=== PATIENT | male | born 1950 | race African-American/Black ===

== ENCOUNTER 2017-11-16 03:20 | Emergency (ER) | payer MEDICARE, OTHER ==
[2017-11-16] MEDS ORDERED: ONDANSETRON HCL INJ/PF 4 MG/2 ML SDV IV ONE (03:49)
[2017-11-16] MEDS ORDERED: MORPHINE SULFATE 10 MG/ML INJ IV ONE (03:49)
--- NOTE | 2017-11-16 03:56 | ER Document Report ---
ED General - General Chief Complaint: Pain All Over Stated Complaint: PAIN ALL OVER Time Seen by Provider: 11/16/17 03:36 Notes: Patient is a 67 year old male that comes to the ED for chief complaint of body pain. He states he is getting sharp pains all the way from his toes up to his shoulders, he mainly hurts in his shoulders, arms, legs. He states he has had these pains for the past 4 years. He is on pain management taking oxycodone 10/ 325 but he states he is out. He denies nausea vomiting, chest pain, difficulty breathing, dizziness, passing out, fever or chills. He states he has had a bypass surgery, and thrombocytopenia been treated for this in the past, otherwise he denies any medical history, he denies any other medical lesions other than the pain medication. He has been referred to pain management. He states he has had MRIs performed of his body including his back. He states he was never given a specific reason for his pains. He denies diabetes or known neuropathy. TRAVEL OUTSIDE OF THE [place] IN LAST 30 DAYS: No - Related Data Allergies/Adverse Reactions: No Known Allergies Allergy (Verified 01/05/13 23:46) Past Medical History - General Information source: Patient - Social History Smoking Status: Never Smoker Frequency of alcohol use: None Drug Abuse: None Lives with: Family Family History: Reviewed & Not Pertinent - Past Medical History Cardiac Medical History: Reports: Hx Heart Attack Past Surgical History: Reports: Hx Cardiac Catheterization - 20 YRS AGO, NEG., Hx Coronary Artery Bypass Graft - Immunizations Hx Diphtheria, Pertussis, Tetanus Vaccination: Yes Review of Systems - Review of Systems Constitutional: No symptoms reported EENT: No symptoms reported Cardiovascular: No symptoms reported Respiratory: No symptoms reported Gastrointestinal: No symptoms reported Genitourinary: No symptoms reported Male Genitourinary: No symptoms reported Musculoskeletal: See HPI Skin: No symptoms reported Hematologic/Lymphatic: No symptoms reported Neurological/Psychological: See HPI Physical Exam - Vital signs Vitals: Temp Pulse Resp BP Pulse Ox 98.8 F 87 18 156/76 H 98 11/16/17 03:28 11/16/17 03:28 11/16/17 03:28 11/16/17 03:28 11/16/17 03:28 - Notes Notes: GENERAL: Alert, interacts well. No acute distress. HEAD: Normocephalic, atraumatic. EYES: Pupils equal, round, and reactive to light. Extraocular movements intact. ENT: Oral mucosa moist, tongue midline. NECK: Full range of motion. Supple. Trachea midline. LUNGS: Clear to auscultation bilaterally, no wheezes, rales, or rhonchi. No respiratory distress. HEART: Regular rate and rhythm. No murmur ABDOMEN: Soft, non-tender. Non-distended. Bowel sounds present in all 4 quadrants. EXTREMITIES: Moves all 4 extremities spontaneously, he does move stiffly including the hands and with walking. No edema, normal radial and dorsalis pedis pulses bilaterally. No cyanosis. BACK: no cervical, thoracic, lumbar midline tenderness. No saddle anesthesia, normal distal neurovascular exam. NEUROLOGICAL: Alert and oriented x3. Normal speech. [cranial nerves II through XII grossly intact]. PSYCH: Normal affect, normal mood. SKIN: Warm, dry, normal turgor. No rashes or lesions noted. Course - Re-evaluation Re-evalutation: Patient has stiffness and reported pain but does not appear to be in distress, has no neurological deficits, is well-appearing. Unremarkable vital signs with borderline hypertension. CBC shows minimal leukopenia, no thrombocytopenia, minimal normocytic anemia. Chemistry generally unremarkable. On reevaluation patient continues to be well- appearing, he states he does feel improved after medication, is asking for another dose of something small before he goes home. Patient also given dexamethasone because of widespread joint pain. Discussed with patient, he is already had MRIs, he is unsure of autoimmune workup, he is not diagnosed with neuropathy. I do suspect he has neuropathy based on his exam and explanation of his symptoms. Decision was made that patient will be provided with some pain medication pending pain management follow-up, he will discuss neuropathy treatment with them, patient is to inform his pain management of the pain medication in the morning before filling, this was discussed with and patient. Patient states he will be seen on November 18. Discussed follow-up and return precautions, patient states understanding and agreement. - Vital Signs Vital signs: Temp Pulse Resp BP Pulse Ox 98.8 F 87 21 H 160/84 H 100 11/16/17 03:28 11/16/17 03:28 11/16/17 05:33 11/16/17 05:33 11/16/17 05:33 - Laboratory Result Diagrams: 11/16/17 04:25 11/16/17 04:25 Laboratory results interpreted by me: 11/16/17 11/16/17 04:25 04:25 WBC 3.5 L RBC 4.08 L Hgb 12.0 L Hct 36.1 L RDW 15.7 H Glucose 114 H Discharge - Discharge Clinical Impression: Joint pain Qualifiers: Joint pain location: unspecified Qualified Code(s): M25.50 - Pain in unspecified joint Condition: Stable Disposition: HOME, SELF-CARE Instructions: Oral Narcotic Medication ([facility]) Additional Instructions: Your evaluation does not show any concerning findings today. I suspect you have neuropathy, you may need additional treatments and evaluation for the neuropathy. Follow-up with pain management in 2 days as planned for additional evaluation and management. You have been prescribed medication to help you until you go to pain management. Prescriptions: Morphine Sulfate [Morphine Ir 15 Mg Tablet] 15 mg PO Q4HP PRN #20 tablet PRN Reason: Referrals: NICOLE BOWERS FNP [Primary Care Provider] - Follow up as needed
[2017-11-16 04:40] LABS: ABSOLUTE EOSINOPHILS # (AUTO) 0.1 10^3/uL (0.0-0.6); ABSOLUTE LYMPHOCYTES (AUTO) 0.5 10^3/uL (0.5-4.7); ABSOLUTE MONOCYTES (AUTO) 0.2 10^3/uL (0.1-1.4); ABSOLUTE NEUT (AUTO) 2.6 10^3/uL (1.7-8.2); BASOPHILS % (AUTO) 0.2 % (0-2); HEMATOCRIT 36.1 % (37.9-51.0); LYMPHOCYTES % (AUTO) 14.4 % (13-45); MEAN CORPUSCULAR HEMOGLOBIN 29.5 pg (27.0-33.4); MEAN CORPUSCULAR HGB CONC 33.3 g/dL (32.0-36.0); MEAN CORPUSCULAR VOLUME 89 fl (80-97); MONOCYTES % (AUTO) 6.7 % (3-13); PLATELET COUNT 208 10^3/uL (150-450); RED BLOOD COUNT 4.08 10^6/uL (4.35-5.55); RED CELL DISTRIBUTION WIDTH 15.7 % (11.5-14.0); SEGMENTED NEUTROPHILS % (AUTO) 75.7 % (42-78); TOTAL CELLS COUNTED % (AUTO) 100 %; WHITE BLOOD COUNT 3.5 10^3/uL (4.0-10.5)
[2017-11-16 04:56] LABS: ALANINE AMINOTRANSFERASE 29 U/L (21-72); ALKALINE PHOSPHATASE 65 U/L (38-126); ANION GAP 13 (5-19); ASPARTATE AMINO TRANSFERASE 33 U/L (17-59); BILIRUBIN,DIRECT 0.4 mg/dL (0.0-0.4); BILIRUBIN,TOTAL 0.5 mg/dL (0.2-1.3); BLOOD UREA NITROGEN 15 mg/dL (7-20); CALCIUM 9.2 mg/dL (8.4-10.2); CARBON DIOXIDE 25 mmol/L (22-30); CHLORIDE 106 mmol/L (98-107); GLUCOSE 114 mg/dL (75-110); POTASSIUM 4.3 mmol/L (3.6-5.0)
[2017-11-16] MEDS ORDERED: HYDROMORPHONE HCL INJ/PF 2 MG/ML AMPULE IV ONE (05:17)
[2017-11-16] MEDS ORDERED: DEXAMETHASONE SOD PHOS INJ 10 MG/1 ML VIAL IV ONE (05:18)
[2017-11-16 05:54] VITALS: BP 160/84
== END 2017-11-16 05:55 | disposition home or self-care (01) ==
LOC: ER 03:20
DX: M25.519 Pain in unspecified shoulder (principal); M79.603 Pain in arm, unspecified; M79.606 Pain in leg, unspecified; D72.819 Decreased white blood cell count, unspecified; D64.9 Anemia, unspecified; Z95.1 Presence of aortocoronary bypass graft
CPT/HCPCS: 99283; 96374; 96375; 36415; 85025; 80053; J2270; J1170; J2405; J1100

== ENCOUNTER 2018-03-28 12:53 | Emergency (ER) | payer MEDICARE ==
[2018-03-28] MEDS ORDERED: ASPIRIN 81 MG TABLET, CHEWABLE PO ONE (14:27)
--- NOTE | 2018-03-28 14:41 | ER Document Report ---
ED General - General Chief Complaint: Chest Pain Stated Complaint: CHEST PAIN Time Seen by Provider: 03/28/18 13:48 Mode of Arrival: Ambulatory Information source: Patient, Relative, [facility], [facility]–1983 Records Notes: 67-year-old male with coronary artery disease, history of CABG in 2013 presents with complaint of left-sided chest pain, left upper abdominal pain that has been present since his surgery in 2013 with reported worsening over the last 3 weeks. He describes it as a sharp intermittent pain that resolves when he remains still. States that he believes this is gas-like pain. Patient denies associated headache, diaphoresis, nausea, vomiting, dysuria, black or bloody stools. He does report a history of thrombocytopenia. Patient states that he took himself off of all of the medications that he was discharged home on. TRAVEL OUTSIDE OF THE [place] IN LAST 30 DAYS: No - HPI Onset: Other Onset/Duration: Constant Quality of pain: Sharp Severity: Moderate Associated symptoms: Chest pain, Shortness of breath. denies: Nonproductive cough, Productive cough, Fever, Headache, Nausea, Vomiting Exacerbated by: Movement Relieved by: Remaining still Similar symptoms previously: Yes Recently seen / treated by doctor: No - Related Data Allergies/Adverse Reactions: lemon Allergy (Verified 03/28/18 14:31) Past Medical History - General Information source: Patient - Social History Smoking Status: Never Smoker Chew tobacco use (# tins/day): No Frequency of alcohol use: None Drug Abuse: None Lives with: Spouse/Significant other Family History: Reviewed & Not Pertinent Patient has suicidal ideation: No Patient has homicidal ideation: No - Past Medical History Cardiac Medical History: Reports: Hx Coronary Artery Disease, Hx Heart Attack, Hx Hypertension Renal/ Medical History: Denies: Hx Peritoneal Dialysis Past Surgical History: Reports: Hx Cardiac Catheterization - 20 YRS AGO, NEG., Hx Cardiac Surgery - CABG, x3 stent placement 2013, Hx Coronary Artery Bypass Graft - Immunizations Hx Diphtheria, Pertussis, Tetanus Vaccination: Yes Review of Systems - Review of Systems Notes: REVIEW OF SYSTEMS: CONSTITUTIONAL : Denies fever, chills, or sweats. Denies recent illness. Denies weight loss, recent hospitalizations. EENT: Denies visual changes, eye pain. Denies sore throat, oral lesions, difficulty swallowing. CARDIOVASCULAR: Denies palpitations. Denies lower extremity edema. RESPIRATORY: Denies cough. Denies shortness of breath, wheezing. GASTROINTESTINAL: Denies abdominal distention. Denies nausea, vomiting, or diarrhea. Denies blood in vomitus, stools, or per rectum. Denies black, tarry stools. Denies constipation. GENITOURINARY: Denies difficulty urinating, painful urination, frequency, blood in urine, testicular pain or penile discharge. MUSCULOSKELETAL: Denies back or neck pain or stiffness. Denies joint pain or swelling. SKIN: Denies rash, lesions or sores. HEMATOLOGIC : Denies easy bruising or bleeding. LYMPHATIC: Denies swollen glands. NEUROLOGICAL: Denies confusion or altered mental status. Denies loss of consciousness. Denies dizziness or lightheadedness. Denies headache. Denies weakness or paralysis. Denies problems difficulty with ambulation, slurred speech. Denies sensory loss, numbness, or tingling. Denies seizures. PSYCHIATRIC: Denies anxiety or stress. Denies depression, suicidal ideation, or Physical Exam - Vital signs Vitals: Temp Pulse Resp BP Pulse Ox 98.7 F 76 18 160/87 H 99 03/28/18 13:04 03/28/18 13:04 03/28/18 13:04 03/28/18 13:04 03/28/18 13:04 Interpretation: Hypertensive. No: Tachycardic, Febrile - Notes Notes: PHYSICAL EXAMINATION: GENERAL: Well-appearing, well-nourished and in no acute distress. HEAD: Atraumatic, normocephalic. EYES: Pupils equal round and reactive to light, extraocular movements intact, sclera anicteric, conjunctiva are normal. ENT: Nares patent, oropharynx clear without exudates. Moist mucous membranes. NECK: Normal range of motion, supple without lymphadenopathy LUNGS: Diminished breath sounds bilaterally in the lower lung pimentel. No wheezes rales or rhonchi. Surgical scar clean dry and intact. Anterior chest wall tenderness with palpation. HEART: Regular rate and rhythm without murmurs ABDOMEN: Soft, nontender, nondistended abdomen. No guarding, no rebound. No masses appreciated. Musculoskeletal: Normal range of motion, no pitting or edema. No cyanosis. NEUROLOGICAL: Cranial nerves grossly intact. Normal speech, normal gait. Normal sensory, motor exams PSYCH: Normal mood, normal affect. SKIN: Erythematous rash on knees bilaterally. Not vesicular, pustular appears petechial. Course - Re-evaluation Re-evalutation: 03/28/18 17:55 Laboratory 03/28/18 03/28/18 03/28/18 14:11 14:11 14:11 WBC 3.1 L RBC 4.42 Hgb 13.4 L Hct 39.7 MCV 90 MCH 30.3 MCHC 33.8 RDW 15.9 H Plt Count 176 Seg Neutrophils % 71.6 Lymphocytes % 16.5 Monocytes % 8.9 Eosinophils % 2.6 Basophils % 0.4 Absolute Neutrophils 2.2 Absolute Lymphocytes 0.5 Absolute Monocytes 0.3 Absolute Eosinophils 0.1 Absolute Basophils 0.0 PT INR Sodium 144.5 Potassium 3.8 Chloride 103 Carbon Dioxide 30 Anion Gap 12 BUN 15 Creatinine 0.83 Est GFR ( Amer) > 60 Est GFR (Non-Af Amer) > 60 Glucose 98 Calcium 9.4 Total Bilirubin 0.5 Direct Bilirubin 0.3 Neonat Total Bilirubin Not Reportable Neonat Direct Bilirubin Not Reportable Neonat Indirect Bili Not Reportable AST 35 ALT 15 L Alkaline Phosphatase 63 Creatine Kinase 51 L CK-MB (CK-2) < 0.22 Troponin I < 0.012 NT-Pro-B Natriuret Pep 190 Total Protein 8.0 Albumin 4.1 Lipase 132.1 03/28/18 03/28/18 03/28/18 14:11 15:22 16:40 WBC RBC Hgb Hct MCV MCH MCHC RDW Plt Count Seg Neutrophils % Lymphocytes % Monocytes % Eosinophils % Basophils % Absolute Neutrophils Absolute Lymphocytes Absolute Monocytes Absolute Eosinophils Absolute Basophils PT Cancelled 12.5 INR Cancelled 0.89 Sodium Potassium Chloride Carbon Dioxide Anion Gap BUN Creatinine Est GFR ( Amer) Est GFR (Non-Af Amer) Glucose Calcium Total Bilirubin Direct Bilirubin Neonat Total Bilirubin Neonat Direct Bilirubin Neonat Indirect Bili AST ALT Alkaline Phosphatase Creatine Kinase CK-MB (CK-2) Troponin I < 0.012 NT-Pro-B Natriuret Pep Total Protein Albumin Lipase Chest X-Ray 03/28/18 14:27 IMPRESSION: The heart slightly enlarged without failure. Acute Abdomen Series 03/28/18 15:47 IMPRESSION: NO RADIOGRAPHIC EVIDENCE FOR ACUTE ABDOMINAL DISEASE. Temp Pulse Resp BP Pulse Ox 98.7 F 76 25 H 167/76 H 98 03/28/18 13:04 03/28/18 13:04 03/28/18 17:27 03/28/18 17:27 03/28/18 17:27 59-year-old male with history these and CABG in 2013 presents with left-sided chest and left upper quadrant abdominal pain that has been present for approximately 4 years with worsening over the last 3 weeks. Upon arrival patient was placed on social services technician and an EKG was obtained which showed the patient to be in normal sinus rhythm. Patient does not appear toxic or dehydrated. He is in no acute distress. Previous medical records and nursing notes reviewed. CBC is without leukocytosis or anemia. There is no thrombocytopenia. Troponin is negative x2. Chest x-ray shows cardiomegaly without evidence of vascular congestion. CMP, lipase, BNP within normal limits. Patient received a GI cocktail and does report improvement of his pain. He does have an upcoming appointment with his primary care physician in 4 days and he was strongly encouraged to keep this. I feel that if this was cardiac in nature after 3 weeks of persistent pain and 4 years of intermittent pain we would see an elevation in his troponin or some other abnormality. Patient was provided a copy of his imaging and lab work that was performed today. 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 Patient was evaluated and treated as appropriate for the patient's presenting symptoms and complaint, with consideration of any critical or life threatening conditions that may be associated with their obtained history and exam as noted above. All results were discussed with patient and his . Patient provided the opportunity to ask questions, and express concerns. Patient was educated on treatments based on their presumed diagnosis as noted above. At this time we will discharge the patient with return precautions and follow-up recommendations. Verbal discharge instructions given a the bedside. Medication warnings reviewed. Patient is in agreement with this plan and has verbalized understanding of return precautions. After careful consideration I feel that that patient can be safely discharged from the emergency department, they were advised to followup with a primary care physician in 2-3 days. Dictation on this chart was performed using voice recognition software and may result in unintended grammatical, spelling, syntax or errors. 03/28/18 18:03 - Vital Signs Vital signs: Temp Pulse Resp BP Pulse Ox 98.7 F 76 25 H 167/76 H 98 03/28/18 13:04 03/28/18 13:04 12/09/18 17:27 03/28/18 17:27 03/28/18 17:27 - Laboratory Result Diagrams: 03/28/18 14:11 03/28/18 14:11 Laboratory results interpreted by me: 03/28/18 03/28/18 14:11 14:11 WBC 3.1 L Hgb 13.4 L RDW 15.9 H ALT 15 L Creatine Kinase 51 L - Diagnostic Test Radiology reviewed: Image reviewed, Reports reviewed - EKG Interpretation by Me EKG shows normal: Sinus rhythm Rate: Normal Rhythm: NSR Voltage: Consistant with LVH When compared to previous EKG there are: No significant change Discharge - Discharge Clinical Impression: Epigastric abdominal pain, Noncompliance with medication regimen, History of coronary artery bypass graft x 3, Left ventricular hypertrophy, Elevated blood pressure reading Chest pain Qualifiers: Chest pain type: unspecified Qualified Code(s): R07.9 - Chest pain, unspecified Condition: Good Disposition: HOME, SELF-CARE Instructions: Abdominal Pain ([facility]), Aspirin (Cardiac) ([facility]), Chest Pain of Unclear Cause ([facility]), Reflux Disease (GERD) ([facility]) Additional Instructions: You were seen today for chest pain. The exact cause of your pain is unclear. However, based on your cardiac enzyme testing, chest x-ray, and EKG it does not appear that it is from an immediately life-threatening cause at this time. Although your testing here is normal is critical that you follow-up with your primary care physician for continued evaluation of this chest pain and possible stress testing. I recommended you see your physician within the next 24-48 hours to be evaluated for consideration of a stress test. Please return to emergency department immediately if you have worsening of your chest pain, shortness of breath, vomiting, become unable to exert yourself due to pain or difficulty breathing, you pass out, or have any pain that radiates into your arms, jaw, or back. Please also return if you have any additional symptoms that are concerning to you. Prescriptions: Dicyclomine HCl [Bentyl 20 mg Tablet] 20 mg PO QID #10 tablet Sucralfate [Carafate 1 gm Tablet] 1 gm PO ACHS #20 tablet Forms: Elevated Blood Pressure Referrals: NICOLE BOWERS FNP [Primary Care Provider] - Follow up tomorrow
[2018-03-28 14:50] LABS: ABSOLUTE EOSINOPHILS # (AUTO) 0.1 10^3/uL (0.0-0.6); ABSOLUTE LYMPHOCYTES (AUTO) 0.5 10^3/uL (0.5-4.7); ABSOLUTE MONOCYTES (AUTO) 0.3 10^3/uL (0.1-1.4); ABSOLUTE NEUT (AUTO) 2.2 10^3/uL (1.7-8.2); BASOPHILS % (AUTO) 0.4 % (0-2); EOSINOPHILS % (AUTO) 2.6 % (0-6); HEMATOCRIT 39.7 % (37.9-51.0); HEMOGLOBIN 13.4 g/dL (13.5-17.0); LYMPHOCYTES % (AUTO) 16.5 % (13-45); MEAN CORPUSCULAR HEMOGLOBIN 30.3 pg (27.0-33.4); MEAN CORPUSCULAR HGB CONC 33.8 g/dL (32.0-36.0); MEAN CORPUSCULAR VOLUME 90 fl (80-97); MONOCYTES % (AUTO) 8.9 % (3-13); PLATELET COUNT 176 10^3/uL (150-450); RED BLOOD COUNT 4.42 10^6/uL (4.35-5.55); RED CELL DISTRIBUTION WIDTH 15.9 % (11.5-14.0); SEGMENTED NEUTROPHILS % (AUTO) 71.6 % (42-78); TOTAL CELLS COUNTED % (AUTO) 100 %; WHITE BLOOD COUNT 3.1 10^3/uL (4.0-10.5)
[2018-03-28 14:59] LABS: ALANINE AMINOTRANSFERASE 15 U/L (21-72); ALBUMIN 4.1 g/dL (3.5-5.0); ALKALINE PHOSPHATASE 63 U/L (38-126); ANION GAP 12 (5-19); ASPARTATE AMINO TRANSFERASE 35 U/L (17-59); BILIRUBIN,DIRECT 0.3 mg/dL (0.0-0.4); BILIRUBIN,TOTAL 0.5 mg/dL (0.2-1.3); BLOOD UREA NITROGEN 15 mg/dL (7-20); CALCIUM 9.4 mg/dL (8.4-10.2); CARBON DIOXIDE 30 mmol/L (22-30); CHLORIDE 103 mmol/L (98-107); CREATINE KINASE 51 U/L (55-170); GLUCOSE 98 mg/dL (75-110); LIPASE 132.1 U/L (23-300); POTASSIUM 3.8 mmol/L (3.6-5.0); SODIUM 144.5 mmol/L (137-145)
--- NOTE | 2018-03-28 15:06 | RADIOLOGY REPORT (SQ) ---
EXAM DESCRIPTION: CHEST SINGLE VIEW COMPLETED DATE/TIME: 03/28/2018 2:52 pm REASON FOR STUDY: Chest pain COMPARISON: 03/20/2013 EXAM PARAMETERS: NUMBER OF VIEWS: One view. TECHNIQUE: Single frontal radiographic view of the chest acquired. RADIATION DOSE: NA LIMITATIONS: None. FINDINGS: LUNGS AND PLEURA: No opacities, masses or pneumothorax. No pleural effusion. MEDIASTINUM AND HILAR STRUCTURES: No masses. Contour normal. HEART AND VASCULAR STRUCTURES: Heart slightly enlarged. BONES: No acute findings. HARDWARE: Interval sternal wires. OTHER: No other significant finding. IMPRESSION: The heart slightly enlarged without failure. TECHNICAL DOCUMENTATION: JOB ID: [id number] [employer]- All Rights Reserved Reading location - IP/workstation name: [email or web address]
[2018-03-28 15:11] LABS: CREATINE KINASE MB < 0.22 ng/mL (<4.55); NT PRO BNP 190 pg/mL (5-900); TROPONIN I < 0.012 ng/mL
[2018-03-28 15:49] LABS: INTERNATIONAL RATION (INR) 0.89; PROTHROMBIN TIME 12.5 SEC (11.4-15.4)
--- NOTE | 2018-03-28 16:26 | RADIOLOGY REPORT (SQ) ---
EXAM DESCRIPTION: ACUTE ABDOMEN SERIES COMPLETED DATE/TIME: 03/28/2018 4:18 pm REASON FOR STUDY: Abdominal pain COMPARISON: None. NUMBER OF VIEWS: Three views. TECHNIQUE: Frontal chest, supine abdomen and upright/decubitus abdomen radiographic images acquired. LIMITATIONS: None. FINDINGS: CHEST: Lungs clear of infiltrates. FREE AIR: None. No abnormal gas collections. BOWEL GAS PATTERN: Nonobstructive pattern. No dilated loops or air fluid levels. CALCIFICATIONS: No suspicious calcifications. HARDWARE: None in the abdomen. SOFT TISSUES: No gross mass or suggestion of organomegaly. BONES: No acute fracture. No worrisome bone lesions. OTHER: No other significant finding. IMPRESSION: NO RADIOGRAPHIC EVIDENCE FOR ACUTE ABDOMINAL DISEASE. TECHNICAL DOCUMENTATION: JOB ID: [id number] [employer]- All Rights Reserved Reading location - IP/workstation name: [email or web address]
[2018-03-28] MEDS ORDERED: METOCLOPRAMIDE HCL ORAL SOLN 10 MG/10 ML UDCUP PO ONE (16:44)
[2018-03-28] MEDS ORDERED: LIDOCAINE 2% VISCOUS SOLN 20 ML UDCUP PO ONE (16:44)
[2018-03-28] MEDS ORDERED: MAG HYDROX/AL HYDROX/SIMETH SUSP 30 ML UDCUP PO ONE (16:44)
[2018-03-28 17:52] VITALS: BP 167/76
--- NOTE | 2018-03-28 22:15 | EKG REPORT ---
SEVERITY:- ABNORMAL ECG - SINUS RHYTHM LEFT VENTRICULAR HYPERTROPHY : Confirmed by: Jazmin Garcia 28-Mar-2018 22:14:56
--- NOTE | 2018-03-28 22:15 | EKG REPORT ---
SEVERITY:- NORMAL ECG - SINUS RHYTHM : Confirmed by: Jazmin Garcia 28-Mar-2018 22:14:46
== END 2018-03-28 17:59 | disposition home or self-care (01) ==
LOC: ER 12:53
DX: R10.13 Epigastric pain (principal); I10 Essential (primary) hypertension; I51.7 Cardiomegaly; Z95.1 Presence of aortocoronary bypass graft; Z91.14 Patient's other noncompliance with medication regimen; R07.9 Chest pain, unspecified; I25.10 Atherosclerotic heart disease of native coronary artery without angina pectoris; R10.12 Left upper quadrant pain; R06.02 Shortness of breath
CPT/HCPCS: 93005; 99285; 36415; 82553; 82550; 83690; 85025; 85610; 80053; 84484; 83880; 74022; 71045; 93010; A9270 ×2; J3490

== ENCOUNTER 2019-07-29 02:11 | Observation (INO) | payer MEDICARE ==
--- NOTE | 2019-07-29 03:14 | ER Document Report ---
ED General - General Chief Complaint: Probable Seizure Stated Complaint: SEIZURE Time Seen by Provider: 07/29/19 03:05 Primary Care Provider: NICOLE BOWERS FNP [Primary Care Provider] - Follow up as needed Notes: Patient is a 69-year-old male that comes to the emergency department for chief complaint of a seizure. Patient states that he remembers having a slight headache when he went to bed, he states the next thing he remembers that he woke up and EMS was at bedside. told triage and told patient that she woke up and noticed him to be jerking in the bed like he was having a seizure. Patient denies ever having a seizure in the past. He denies current headache. He denies vomiting, fever, or falling out of the bed. Patient states the seizure happened in about 12:40 AM, he states that EMS did not transport him here because he was out of [facility], his drove him here instead. He denies any current symptoms. Past medical history includes CABG, lupus, PRN pain medication for lupus flare, and he is on hydroxychloroquine. TRAVEL OUTSIDE OF THE [place] IN LAST 30 DAYS: No - Related Data Allergies/Adverse Reactions: lemon Allergy (Verified 03/28/18 14:31) Home Medications: Oxycodone, hydrochloraquine Past Medical History - General Information source: Patient - Social History Smoking Status: Never Smoker Frequency of alcohol use: None Drug Abuse: None Lives with: Family Family History: Reviewed & Not Pertinent Patient has suicidal ideation: No Patient has homicidal ideation: No - Past Medical History Cardiac Medical History: Reports: Hx Coronary Artery Disease, Hx Heart Attack, Hx Hypertension Renal/ Medical History: Denies: Hx Peritoneal Dialysis Past Surgical History: Reports: Hx Cardiac Catheterization - 20 YRS AGO, NEG., Hx Cardiac Surgery - CABG, x3 stent placement 2013, Hx Coronary Artery Bypass Graft - Immunizations Hx Diphtheria, Pertussis, Tetanus Vaccination: Yes Review of Systems - Review of Systems Constitutional: No symptoms reported EENT: No symptoms reported Cardiovascular: No symptoms reported Respiratory: No symptoms reported Gastrointestinal: No symptoms reported Genitourinary: No symptoms reported Male Genitourinary: No symptoms reported Musculoskeletal: No symptoms reported Skin: No symptoms reported Hematologic/Lymphatic: No symptoms reported Neurological/Psychological: See HPI Physical Exam - Vital signs Vitals: Temp Pulse Resp BP Pulse Ox 98.5 F 87 15 168/82 H 95 07/29/19 02:31 07/29/19 02:31 07/29/19 02:31 07/29/19 02:31 07/29/19 02:31 - Notes Notes: GENERAL: Alert, interacts well. No acute distress. HEAD: Normocephalic, atraumatic. EYES: Pupils equal, round, and reactive to light. Extraocular movements intact. ENT: Oral mucosa moist, tongue midline. Oropharynx unremarkable. Airway patent. NECK: Full range of motion. Supple. Trachea midline. No lymphadenopathy. LUNGS: Clear to auscultation bilaterally, no wheezes, rales, or rhonchi. No respiratory distress. Non-tender chest wall. HEART: Regular rate and rhythm. No murmur ABDOMEN: Soft, non-tender. Non-distended. EXTREMITIES: Moves all 4 extremities spontaneously. No edema, normal radial and dorsalis pedis pulses bilaterally. No cyanosis. BACK: no cervical, thoracic, lumbar midline tenderness. No saddle anesthesia, normal distal neurovascular exam. Moves all extremities in full range of motion. NEUROLOGICAL: Alert and oriented x3. Normal speech. Cranial nerves II through XII grossly intact. Strength 5/5 in all extremities. PSYCH: Normal affect, normal mood. SKIN: Warm, dry, normal turgor. No rashes or lesions noted. Course - Re-evaluation Re-evalutation: Patient is alert and well-appearing. He has a normal neurologic exam. He is hypertensive in the 160s initially, vital signs unremarkable otherwise. CBC unremarkable, chemistry unremarkable including sodium, magnesium unremarkable, alcohol negative, urine drug screen negative, urinalysis unremarkable. EKG with no acute findings. CT of the brain with no acute abnormality, chest x-ray unremarkable. Patient became very hypertensive, I reevaluated him, he still denies any symptoms. This did downtrend back into the 160s. On review of previous visits patient always is hypertensive at 160s or greater. He is not on hypertensive management. He is also on hydroxychloroquine, this apparently does lower your seizure threshold, however patient states he has been on this for a year. 07/29/19 06:09 I called and spoke with patient's , Carlie Stone. She is actually extremely well spoken and detailed. She states that at approximately 12:40 PM she awoke because patient was jerking in the bed, she states that she turned on the lights, called his name, she states he was rolled on his right side with his right arm underneath him and he was shaking uncontrollably. She states that his eyes were open and not focused. She states that he would not respond to her. She states he did this for 15 minutes, then afterwards he was "breathing funny, blowing out like a horse". She states it took until 01:05 until he stopped being sluggish and seemed to be responding normally again. I asked again to clarify and she again states it was about 15 minutes of seizure activity. I spoke with Dr. Gilman. He recommends neurology consult and admission for an MRI. 07/29/19 07:[address] Harrington, neurology at [facility]. He states he does not recommend we initiate antiepileptics, he does not recommend that we stop the hydroxychloroquine, he does recommend/agree with an MRI and observation, EEG can either be performed in our outpatient and patient will need to follow-up with neurology afterwards. He has no additional recommendations at this time. 07/29/19 07:[address] Rosado. Patient will be accepted for observation, will be seen by Stefany Browning NP. - Vital Signs Vital signs: Temp Pulse Resp BP Pulse Ox 98.9 F 84 20 149/84 H 99 07/29/19 03:18 07/29/19 03:18 07/29/19 07:01 07/29/19 07:01 07/29/19 07:01 - Laboratory Result Diagrams: 07/29/19 03:00 07/29/19 04:25 Laboratory results interpreted by me: 07/29/19 07/29/19 07/29/19 03:00 04:25 04:55 RDW 14.3 H Lymph % (Auto) 8.8 L Seg Neutrophils % 78.9 H Chloride 108 H Glucose 128 H POC Glucose 112 H Urine Protein Urine Blood 07/29/19 05:00 RDW Lymph % (Auto) Seg Neutrophils % Chloride Glucose POC Glucose Urine Protein 30 H Urine Blood SMALL H Discharge - Discharge Clinical Impression: Seizure, Uncontrolled hypertension Condition: Stable Disposition: ADMITTED OBSERVATION Admitting Provider: Stefany Browning BROADCAST CHECKER with Dr. Rosado Unit Admitted: IMCU Referrals: ELISSA,NICOLE, [facility] [Primary Care Provider] - Follow up as needed
[2019-07-29 03:53] LABS: ABSOLUTE EOSINOPHILS # (AUTO) 0.1 10^3/uL (0.0-0.6); ABSOLUTE LYMPHOCYTES (AUTO) 0.5 10^3/uL (0.5-4.7); ABSOLUTE MONOCYTES (AUTO) 0.6 10^3/uL (0.1-1.4); ABSOLUTE NEUT (AUTO) 4.7 10^3/uL (1.7-8.2); BASOPHILS % (AUTO) 0.2 % (0-2); EOSINOPHILS % (AUTO) 2.1 % (0-6); HEMATOCRIT 43.3 % (37.9-51.0); HEMOGLOBIN 15.2 g/dL (13.5-17.0); LYMPHOCYTES % (AUTO) 8.8 % (13-45); MEAN CORPUSCULAR HGB CONC 35.2 g/dL (32.0-36.0); MEAN CORPUSCULAR VOLUME 94 fl (80-97); PLATELET COUNT 166 10^3/uL (150-450); RED BLOOD COUNT 4.61 10^6/uL (4.35-5.55); RED CELL DISTRIBUTION WIDTH 14.3 % (11.5-14.0); SEGMENTED NEUTROPHILS % (AUTO) 78.9 % (42-78); TOTAL CELLS COUNTED % (AUTO) 100 %; WHITE BLOOD COUNT 5.9 10^3/uL (4.0-10.5)
--- NOTE | 2019-07-29 04:42 | RADIOLOGY REPORT (SQ) ---
CT head without contrast on 07/29/2019 at 4:01 AM CLINICAL INDICATION: Headache, seizure TECHNIQUE: Multiple axial images are obtained throughout the head without the administration of contrast. This exam was performed according to our departmental dose-optimization program, which includes automated exposure control, adjustment of the mA and/or kV according to patient size and/or use of iterative reconstruction technique. Total DLP is 1096.98 mGy*cm. COMPARISON: None FINDINGS: Incidental bilateral basal ganglia calcifications are noted. There is no hydrocephalus. There is no CT evidence of acute infarct. There is no hemorrhage. There are no abnormal extra-axial fluid collections. There is no mass, mass effect or midline shift. No bony abnormality is noted. IMPRESSION: No acute intracranial abnormality.
--- NOTE | 2019-07-29 04:42 | RADIOLOGY REPORT (SQ) ---
EXAM DESCRIPTION: XR CHEST 1 VIEW COMPLETED DATE/TME: 07/29/2019 03:13 CLINICAL HISTORY: 69 years Male, weakness, seizure, ?aspiration COMPARISON: 05/10/12 NUMBER OF VIEWS/TECHNIQUE: 1/AP FINDINGS: Adequate lung volume, clear parenchyma, normal cardiac silhouette, and sternotomy.Cardiac/mediastinal hardware/clips. IMPRESSION: No acute cardiopulmonary findings.
[2019-07-29 04:55] LABS: ALBUMIN 4.3 g/dL (3.5-5.0); ALKALINE PHOSPHATASE 46 U/L (38-126); ANION GAP 7 (5-19); ASPARTATE AMINO TRANSFERASE 20 U/L (17-59); BILIRUBIN,TOTAL 0.4 mg/dL (0.2-1.3); BLOOD UREA NITROGEN 10 mg/dL (7-20); CALCIUM 9.4 mg/dL (8.4-10.2); CARBON DIOXIDE 26 mmol/L (22-30); CHLORIDE 108 mmol/L (98-107); GLUCOSE 128 mg/dL (75-110); POTASSIUM 3.7 mmol/L (3.6-5.0); TOTAL PROTEIN 7.2 g/dL (6.3-8.2)
[2019-07-29 05:02] LABS: ALCOHOL < 10 mg/dL (NONE DETECTED)
[2019-07-29 05:20] LABS: APPEARANCE,URINE CLEAR; BILIRUBIN,URINE NEGATIVE (NEGATIVE); COLOR,URINE YELLOW; GLUCOSE, URINE NEGATIVE (NEGATIVE); KETONES,URINE NEGATIVE (NEGATIVE); LEUKOCYTE ESTERASE,URINE NEGATIVE (NEGATIVE); NITRITE,URINE NEGATIVE (NEGATIVE); PROTEIN,URINE 30 mg/dL (NEGATIVE); URINE SPECIFIC GRAVITY 1.015; UROBILINOGEN,URINE NEGATIVE mg/dL (<2.0)
[2019-07-29 05:25] LABS: URINE AMPHETAMINES SCREEN NEGATIVE; URINE BARBITURATES SCREEN NEGATIVE; URINE BENZODIAZEPINES SCREEN NEGATIVE; URINE COCAINE SCREEN NEGATIVE; URINE MARIJUANA (THC) SCREEN NEGATIVE; URINE METHADONE SCREEN NEGATIVE; URINE PHENCYCLIDINE SCREEN NEGATIVE
[2019-07-29] MEDS ORDERED: MAG HYDROX/AL HYDROX/SIMETH SUSP 30 ML UDCUP PO PRN (07:53)
[2019-07-29] MEDS ORDERED: ALBUTEROL SULFATE 0.083% NEB 2.5 MG/3 ML AMPUL NEB PRN (07:53)
[2019-07-29] MEDS ORDERED: ACETAMINOPHEN 325 MG TABLET PO PRN (07:53)
[2019-07-29] MEDS ORDERED: ONDANSETRON 4 MG TAB.RAPDIS PO PRN (07:53)
[2019-07-29] MEDS ORDERED: LORAZEPAM INJ 2 MG/1 ML VIAL IV PRN (07:58)
[2019-07-29] MEDS ORDERED: HYDRALAZINE HCL INJ/PF 20 MG/1 ML SDV IV PRN (07:59)
--- NOTE | 2019-07-29 09:50 | EKG REPORT ---
SEVERITY:- ABNORMAL ECG - SINUS RHYTHM PROBABLE LEFT ATRIAL ABNORMALITY LEFT VENTRICULAR HYPERTROPHY : Confirmed by: Velia Glod MD 29-Jul-2019 09:50:16
[2019-07-29] MEDS: DOCUSATE SODIUM 100 MG CAPSULE PO SCH (13:21)
[2019-07-29] MEDS ORDERED: (PENDING PHARMACY ID) (Oxycodone Hcl/Acetaminophen [Percocet 10-325 Mg Tablet] 1 EACH) PO PRN (13:37)
[2019-07-29] MEDS ORDERED: METHOTREXATE SODIUM 2.5 MG TABLET PO SCH (13:45)
[2019-07-29] MEDS: HEPARIN SOD (PORCINE) 5,000 UNIT/ML 1 ML VIAL SUBCUT SCH ×2 (14:00→21:32)
--- NOTE | 2019-07-29 14:07 | PDOC H&P ---
History of Present Illness Admission Date/PCP: 07/29/19 08:05 KAMRYN KEATING Patient complains of: seizure-like activity History of Present Illness: GAURAV BLACKMON is a 69 year old male with a past medical history significant for lupus, CABG x3, and hypertension who presented to the emergency department today with a complaint of seizure-like activity x10 to 15 minutes observed by spouse. Evaluation in the emergency department revealed normal vital signs with hypertension (BP 164/84)Evaluation in the emergency department revealed normal self, unremarkable CBC, chemistry, CK 146, normal TSH, negative urinalysis, negative UDS and EtOH. Head CT was benign, chest x-ray unremarkable, and EKG showing NSR with LVH. The emergency department provider spoke with neurology at [facility] who recommended continuing the patient's hydroxychloroquine, not starting AEDs, and observational admission for MRI and EEG if can be obtained (appropriate to be done as an outpatient if necessary). Therefore, patient is referred to the hospitalist service for admission and management of the above-stated complaints and findings. Past Medical History Cardiac Medical History: Reports: Coronary Artery Disease, Myocardial Infarction, Hypertension Pulmonary Medical History: Reports: None EENT Medical History: Reports: None Neurological Medical History: Reports: None Endocrine Medical History: Reports: Other - Lupus Renal/ Medical History: Reports: None Malignancy Medical History: Reports: None GI Medical History: Reports: None Musculoskeltal Medical History: Reports: None Psychiatric Medical History: Reports: None Traumatic Medical History: Reports: None Hematology: Reports: None Infectious Medical History: Reports: None Past Surgical History Past Surgical History: Reports: Cardiac Catheterization - 20 YRS AGO, NEG., Coronary Artery Bypass Graft Social History Information Source: Patient Lives with: Family Smoking Status: Never Smoker Electronic Cigarette use?: No Frequency of Alcohol Use: None Hx Recreational Drug Use: No Drugs: None - Advance Directive Resuscitation Status: Full Code Family History Family History: Reviewed & Not Pertinent Parental Family History Reviewed: Yes Children Family History Reviewed: Yes Sibling(s) Family History Reviewed.: Yes Medication/Allergy Home Medications: Folic Acid [Folvite 1 mg Tablet] 1 mg PO DAILY 07/29/19 Hydroxychloroquine Sulfate [Plaquenil 200 mg Tablet] 200 mg PO DAILY 07/29/19 Methotrexate Sodium [Rheumatrex 2.5 mg Tablet] 2.5 mg PO Q7D 07/29/19 Oxycodone HCl/Acetaminophen [Percocet 10-325 Mg Tablet] 1 each PO QIDP PRN 07/29/19 Allergies/Adverse Reactions: lemon Allergy (Verified 03/28/18 14:31) Review of Systems Constitutional: ABSENT: chills, fever(s), headache(s), weight gain, weight loss Eyes: ABSENT: visual disturbances Ears: ABSENT: hearing changes Cardiovascular: ABSENT: chest pain, dyspnea on exertion, edema, orthropnea, palpitations Respiratory: ABSENT: cough, hemoptysis Gastrointestinal: ABSENT: abdominal pain, constipation, diarrhea, hematemesis, hematochezia, nausea, vomiting Genitourinary: ABSENT: dysuria, hematuria Musculoskeletal: ABSENT: joint swelling Integumentary: ABSENT: rash, wounds Neurological: PRESENT: as per HPI. ABSENT: abnormal gait, abnormal speech, confusion, dizziness, focal weakness, syncope Psychiatric: ABSENT: anxiety, depression, homidical ideation, suicidal ideation Endocrine: ABSENT: cold intolerance, heat intolerance, polydipsia, polyuria Hematologic/Lymphatic: ABSENT: easy bleeding, easy bruising Physical Exam Vital Signs: Temp Pulse Resp BP Pulse Ox 98.6 F 67 18 161/81 H 100 07/29/19 09:46 07/29/19 10:24 07/29/19 09:46 07/29/19 09:46 07/29/19 09:46 Intake & Output 07/28/19 07/29/19 07/30/19 06:59 06:59 06:59 Intake Total 240 Balance 240 Weight 86.8 kg 87.1 kg General appearance: PRESENT: no acute distress, well-developed, well-nourished Head exam: PRESENT: atraumatic, normocephalic Eye exam: PRESENT: conjunctiva pink, EOMI, PERRLA. ABSENT: scleral icterus Ear exam: PRESENT: normal external ear exam Mouth exam: PRESENT: moist, tongue midline Neck exam: ABSENT: carotid bruit, JVD, lymphadenopathy, thyromegaly Respiratory exam: PRESENT: clear to auscultation oj. ABSENT: rales, rhonchi, wheezes Cardiovascular exam: PRESENT: RRR. ABSENT: diastolic murmur, rubs, systolic murmur Pulses: PRESENT: normal dorsalis pedis pul Vascular exam: PRESENT: normal capillary refill GI/Abdominal exam: PRESENT: normal bowel sounds, soft. ABSENT: distended, guarding, mass, organolmegaly, rebound, tenderness Rectal exam: PRESENT: deferred Extremities exam: PRESENT: full ROM. ABSENT: calf tenderness, clubbing, pedal edema Neurological exam: PRESENT: alert, awake, oriented to person, oriented to place, oriented to time, oriented to situation, CN II-XII grossly intact. ABSENT: motor sensory deficit Psychiatric exam: PRESENT: appropriate affect, normal mood. ABSENT: homicidal ideation, suicidal ideation Skin exam: PRESENT: dry, intact, warm. ABSENT: cyanosis, rash Results Laboratory Results: 07/29/19 03:00 07/29/19 04:25 07/29/19 07/29/19 07/29/19 03:00 03:00 04:25 WBC 5.9 RBC 4.61 Hgb 15.2 Hct 43.3 MCV 94 MCH 33.0 MCHC 35.2 RDW 14.3 H Plt Count 166 Seg Neutrophils % 78.9 H Sodium Cancelled 140.5 Potassium Cancelled 3.7 Chloride Cancelled 108 H Carbon Dioxide Cancelled 26 Anion Gap Cancelled 7 BUN Cancelled 10 Creatinine Cancelled 0.93 Est GFR ( Amer) Cancelled > 60 Est GFR (Non-Af Amer) Cancelled Glucose Cancelled 128 H Calcium Cancelled 9.4 Magnesium Cancelled 2.0 Total Bilirubin Cancelled 0.4 AST Cancelled 20 Alkaline Phosphatase Cancelled 46 Total Protein Cancelled 7.2 Albumin Cancelled 4.3 TSH Urine Color Urine Appearance Urine pH Ur Specific Rewey Urine Protein Urine Glucose (UA) Urine Ketones Urine Blood Urine Nitrite Ur Leukocyte Esterase Urine WBC (Auto) Urine RBC (Auto) 07/29/19 07/29/19 04:25 05:00 WBC RBC Hgb Hct MCV MCH MCHC RDW Plt Count Seg Neutrophils % Sodium Potassium Chloride Carbon Dioxide Anion Gap BUN Creatinine Est GFR ( Amer) Est GFR (Non-Af Amer) Glucose Calcium Magnesium Total Bilirubin AST Alkaline Phosphatase Total Protein Albumin TSH 1.79 Urine Color YELLOW Urine Appearance CLEAR Urine pH 5.0 Ur Specific Rewey 1.015 Urine Protein 30 H Urine Glucose (UA) NEGATIVE Urine Ketones NEGATIVE Urine Blood SMALL H Urine Nitrite NEGATIVE Ur Leukocyte Esterase NEGATIVE Urine WBC (Auto) 3 Urine RBC (Auto) 4 07/29/19 04:25 Creatine Kinase 146 Impressions: Chest X-Ray 07/29/19 03:13 IMPRESSION: No acute cardiopulmonary findings. Head CT 07/29/19 03:13 IMPRESSION: No acute intracranial abnormality. Assessment and Plan - Diagnosis (1) Seizure Is this a current diagnosis for this admission?: Yes Plan: New onset seizure; noted by while patient was sleeping. Reportedly lasted 10 to 15 minutes with an additional 20 minutes of postictal behavior. On arrival to the emergency department his laboratory evaluation and physical assessment were entirely benign. The emergency department provider spoke with Dr. Harrington who recommended observational admission and MRI. Should have EEG; though can be done as outpatient if not available. Patient will be admitted to the medical floor on continuous cardiac telemetry. MRI is pending. EEG ordered; however, with the holiday weekend, it is quite likely that this will not be available at our facility. Overnight pulse oximetry to observe for desaturation events (seizure activity last night possibly caused by sleep apnea). Continue home medication regiment unchanged. Will need to follow-up without outpatient neurology. (2) Uncontrolled hypertension Is this a current diagnosis for this admission?: Yes Plan: Patient is not on home antihypertensives. We will start lisinopril 10 mg daily. IV hydralazine as needed for blood pressure control. Cardiac diet. - Time Time Spent with patient: 35 or more minutes Medications reviewed and adjusted accordingly: Yes Anticipated discharge: Home Within: within 24 hours
--- NOTE | 2019-07-29 14:43 | RADIOLOGY REPORT (SQ) ---
EXAM DESCRIPTION: MRI HEAD WITHOUT IMAGES COMPLETED DATE/TIME: 07/29/2019 2:26 pm REASON FOR STUDY: new onset seizure COMPARISON: CT dated 07/29/2019. TECHNIQUE: Multiplanar imaging includes non-contrasted T1, T2, FLAIR, and Diffusion with ADC map seq uences. Images stored on PACS. LIMITATIONS: None. FINDINGS: ANATOMY: No anomalies. Normal vascular flow voids. Pituitary fossa normal. CSF SPACES: Normal in size and contour. No hemorrhage. CEREBRUM: A few high-signal intensity lesions scattered throughout the white matter on FLAIR imaging with distribution suggesting chronic micro-vascular ischemic change. Sulci and gyri normal in size a nd contour. No evidence of hemorrhage, mass or extraaxial fluid collection. POSTERIOR FOSSA: No signal alteration. No hemorrhage. No edema, masses or mass effect. Internal eduardo tory canals, cerebello-pontine angles, mastoids normal. DIFFUSION: Negative for acute or sub-acute infarction. ORBITS: No masses. Globes normal. PARANASAL SINUSES: No fluid levels. Mucosa normal. OTHER: No other significant finding. IMPRESSION: MINIMAL MICROVASCULAR ISCHEMIC CHANGE. OTHERWISE NORMAL STUDY. EVIDENCE OF ACUTE STROKE: NO. TECHNICAL DOCUMENTATION: JOB ID: [id number] [email or web address]- All Rights Reserved Reading location - IP/workstation name: [email or web address]
[2019-07-29] MEDS ORDERED: OXYCODONE HCL IR 5 MG TABLET PO PRN (15:03)
[2019-07-29] MEDS ORDERED: OXYCODONE-ACETAMINOPHEN 5-325 MG TABLET PO PRN (15:04)
[2019-07-30] MEDS: HEPARIN SOD (PORCINE) 5,000 UNIT/ML 1 ML VIAL SUBCUT SCH (05:07)
[2019-07-30 05:58] LABS: CHOLESTEROL 190.26 mg/dL (0-200); TRIGLYCERIDES 126 mg/dL (<150)
[2019-07-30 06:03] LABS: ANION GAP 5 (5-19); BLOOD UREA NITROGEN 10 mg/dL (7-20); CALCIUM 8.8 mg/dL (8.4-10.2); CARBON DIOXIDE 26 mmol/L (22-30); CHLORIDE 106 mmol/L (98-107); GLUCOSE 107 mg/dL (75-110); POTASSIUM 3.7 mmol/L (3.6-5.0)
[2019-07-30 06:09] LABS: DIRECT LDL 115 mg/dL (<100)
[2019-07-30] MEDS ORDERED: HYDROXYCHLOROQUINE SULFATE 200 MG TABLET PO SCH (10:00)
[2019-07-30] MEDS ORDERED: FOLIC ACID 1 MG TABLET PO SCH (10:00)
[2019-07-30] MEDS ORDERED: LISINOPRIL 10 MG TABLET PO SCH (10:00)
[2019-07-30 10:54] VITALS: BP 206/99
[2019-07-30] MEDS: DOCUSATE SODIUM 100 MG CAPSULE PO SCH (11:00)
--- NOTE | 2019-07-30 15:25 | PDOC DISCHARGE SUMMARY ---
Impression - Admit/DC Date/PCP Admission Date/Primary Care Provider: 07/29/19 08:05 KAMRYN KEATING Discharge Date: 07/30/19 - Discharge Diagnosis (1) Seizure Is this a current diagnosis for this admission?: Yes (2) Uncontrolled hypertension Is this a current diagnosis for this admission?: Yes - Additional Information Resuscitation Status: Full Code Discharge Diet: Cardiac Discharge Activity: Activity As Tolerated, Balance Activity w/Rest Referrals: ALEX MAIER MD [NO LOCAL MD] - (Follow up with [facility], at the earliest available appointment.) NICOLE BOWERS FNP [Primary Care Provider] - (Follow up within 1 week.) Prescriptions: Lisinopril [Prinivil 10 mg Tablet] 10 mg PO DAILY #30 tablet Home Medications: Folic Acid [Folvite 1 mg Tablet] 1 mg PO DAILY 07/29/19 Hydroxychloroquine Sulfate [Plaquenil 200 mg Tablet] 200 mg PO DAILY 07/29/19 Methotrexate Sodium [Rheumatrex 2.5 mg Tablet] 2.5 mg PO Q7D 07/29/19 Oxycodone HCl/Acetaminophen [Percocet 10-325 mg Tablet] 1 each PO QIDP PRN 07/29/19 Acetaminophen [Tylenol 325 mg Tablet] 650 mg PO Q4HP PRN tablet 07/30/19 Lisinopril [Prinivil 10 mg Tablet] 10 mg PO DAILY #30 tablet 07/30/19 History of Present Illiness History of Present Illness: GAURAV BLACKMON is a 69 year old male with a past medical history significant for lupus, CABG x3, and hypertension who presented to the emergency department today with a complaint of seizure-like activity x10 to 15 minutes observed by spouse. Evaluation in the emergency department revealed normal vital signs with hypertension (BP 164/84)Evaluation in the emergency department revealed normal self, unremarkable CBC, chemistry, CK 146, normal TSH, negative urinalysis, negative UDS and EtOH. Head CT was benign, chest x-ray unremarkable, and EKG showing NSR with LVH. The emergency department provider spoke with neurology at [facility] who recommended continuing the patient's hydroxychloroquine, not starting AEDs, and observational admission for MRI and EEG if can be obtained (appropriate to be done as an outpatient if necessary). Therefore, patient is referred to the hospitalist service for admission and m anagement of the above-stated complaints and findings. Hospital Course Hospital Course: The patient was admitted to the medical floor on continuous cardiac telemetry; remained in normal sinus rhythm overnight. Follow-up MRI was unremarkable. EEG was unavailable during the time of patient's admission; per neurology it would be appropriate to have this completed as an outpatient. Overnight pulse oximetry study was conducted to assess for signs of sleep apnea; no desaturation events were noted. Patient did not have any further seizure activity and is discharged home in stable condition the following day. Per discussion with neurology; patient's Plaquenil is continued. He is not advised to begin anti-elliptic medications at this time. Patient was noted to have hypertension with systolic blood pressure consistently 140-160. Patient was adamant against starting new medications at this time. He was strongly encouraged to follow-up with his primary care provider to discuss antihypertensive therapy. A prescription for lisinopril has been sent to his pharmacy. He has been encouraged to take his blood pressure daily and if he notes that his systolic blood pressure remains above 160 to begin the lisinopril prior to his follow-up. Otherwise he is advised to follow-up with [facility] neurology at the earliest available appointment. He is encouraged to eat a heart healthy diet; reduce alcohol intake and do not smoke. Return to the emergency department as needed for concerning symptoms. Physical Exam Vital Signs: Temp Pulse Resp BP Pulse Ox 98.4 F 85 18 206/99 H 100 07/30/19 10:51 07/30/19 10:51 07/30/19 10:51 07/30/19 10:51 07/30/19 10:51 Pulse Oximeter Nocturnal Start: 07/29/19 08:07 Freq: RTQ4 Status: Complete Protocol: Document 07/30/19 04:20 TANK (Rec: 07/30/19 04:52 TANK [id number]) Nocturnal Pulse Oximetry Equipment Usage Equipment in Use Oxygen Delivery Method (includes room Room Air air) O2 Sat by Pulse Oximetry (92-100) 100 Continuous Pulse Oximeter Set Up Yes Continuous SpO2 Machine # 10 Intake & Output 07/29/19 07/30/19 07/31/19 06:59 06:59 06:59 Intake Total 600 Balance 600 Weight 86.8 kg 86.6 kg General appearance: PRESENT: no acute distress, well-developed, well-nourished Head exam: PRESENT: atraumatic, normocephalic Eye exam: PRESENT: conjunctiva pink, EOMI, PERRLA. ABSENT: scleral icterus Ear exam: PRESENT: normal external ear exam Mouth exam: PRESENT: moist, tongue midline Neck exam: ABSENT: carotid bruit, JVD, lymphadenopathy, thyromegaly Respiratory exam: PRESENT: clear to auscultation oj. ABSENT: rales, rhonchi, wheezes Cardiovascular exam: PRESENT: RRR. ABSENT: diastolic murmur, rubs, systolic murmur Pulses: PRESENT: normal dorsalis pedis pul Vascular exam: PRESENT: normal capillary refill GI/Abdominal exam: PRESENT: normal bowel sounds, soft. ABSENT: distended, guarding, mass, organolmegaly, rebound, tenderness Rectal exam: PRESENT: deferred Extremities exam: PRESENT: full ROM. ABSENT: calf tenderness, clubbing, pedal edema Neurological exam: PRESENT: alert, awake, oriented to person, oriented to place, oriented to time, oriented to situation, CN II-XII grossly intact. ABSENT: motor sensory deficit Psychiatric exam: PRESENT: appropriate affect, normal mood. ABSENT: homicidal ideation, suicidal ideation Skin exam: PRESENT: dry, intact, warm. ABSENT: cyanosis, rash Results Laboratory Results: WBC 5.9 10^3/uL (4.0-10.5) 07/29/19 03:00 RBC 4.61 10^6/uL (4.35-5.55) 07/29/19 03:00 Hgb 15.2 g/dL (13.5-17.0) 07/29/19 03:00 Hct 43.3 % (37.9-51.0) 07/29/19 03:00 MCV 94 fl (80-97) 07/29/19 03:00 MCH 33.0 pg (27.0-33.4) 07/29/19 03:00 MCHC 35.2 g/dL (32.0-36.0) 07/29/19 03:00 RDW 14.3 % (11.5-14.0) H 07/29/19 03:00 Plt Count 166 10^3/uL (150-450) 07/29/19 03:00 Lymph % (Auto) 8.8 % (13-45) L 07/29/19 03:00 [place] % (Auto) 10.0 % (3-13) 07/29/19 03:00 Eos % (Auto) 2.1 % (0-6) 07/29/19 03:00 Baso % (Auto) 0.2 % (0-2) 07/29/19 03:00 Absolute Neuts (auto) 4.7 10^3/uL (1.7-8.2) 07/29/19 03:00 Absolute Lymphs (auto) 0.5 10^3/uL (0.5-4.7) 07/29/19 03:00 Absolute Monos (auto) 0.6 10^3/uL (0.1-1.4) 07/29/19 03:00 Absolute Eos (auto) 0.1 10^3/uL (0.0-0.6) 07/29/19 03:00 Absolute Basos (auto) 0.0 10^3/uL (0.0-0.2) 07/29/19 03:00 Seg Neutrophils % 78.9 % (42-78) H 07/29/19 03:00 Sodium 137.0 mmol/L (137-145) 07/30/19 04:48 Potassium 3.7 mmol/L (3.6-5.0) 07/30/19 04:48 Chloride 106 mmol/L (98-107) 07/30/19 04:48 Carbon Dioxide 26 mmol/L (22-30) 07/30/19 04:48 Anion Gap 5 (5-19) 07/30/19 04:48 BUN 10 mg/dL (7-20) 07/30/19 04:48 Creatinine 0.94 mg/dL (0.52-1.25) 07/30/19 04:48 Est GFR ( Amer) > 60 (>60) 07/30/19 04:48 Est GFR (Non-Af Amer) Cancelled 07/29/19 03:00 Est GFR (MDRD) Non-Af > 60 (>60) 07/30/19 04:48 Glucose 107 mg/dL (75-110) 07/30/19 04:48 POC Glucose 112 mg/dL (70-110) H 07/29/19 04:55 Hemoglobin A1c % 6.0 % (4.7-6.0) 07/30/19 04:48 Calcium 8.8 mg/dL (8.4-10.2) 07/30/19 04:48 Magnesium 2.0 mg/dL (1.6-2.3) 07/29/19 04:25 Total Bilirubin 0.4 mg/dL (0.2-1.3) 07/29/19 04:25 Direct Bilirubin 0.0 mg/dL (0.0-0.4) 07/29/19 04:25 Neonat Total Bilirubin Not Reportable 07/29/19 04:25 Neonat Direct Bilirubin Not Reportable 07/29/19 04:25 Neonat Indirect Bili Not Reportable 07/29/19 04:25 AST 20 U/L (17-59) 07/29/19 04:25 ALT 15 U/L (<50) 07/29/19 04:25 Alkaline Phosphatase 46 U/L (38-126) 07/29/19 04:25 Creatine Kinase 146 U/L (55-170) 07/29/19 04:25 Total Protein 7.2 g/dL (6.3-8.2) 07/29/19 04:25 Albumin 4.3 g/dL (3.5-5.0) 07/29/19 04:25 Triglycerides 126 mg/dL (<150) 07/30/19 04:48 Cholesterol 190.26 mg/dL (0-200) 07/30/19 04:48 LDL Cholesterol Direct 115 mg/dL (<100) H 07/30/19 04:48 VLDL Cholesterol 25.0 mg/dL (10-31) 07/30/19 04:48 HDL Cholesterol 37 mg/dL (>40) L 07/30/19 04:48 EGFR Cancelled 07/29/19 03:00 TSH 1.79 uIU/mL (0.47-4.68) 07/29/19 04:25 Urine Color YELLOW 07/29/19 05:00 Urine Appearance CLEAR 07/29/19 05:00 Urine pH 5.0 (5.0-9.0) 07/29/19 05:00 Ur Specific [place] 1.015 07/29/19 05:00 Urine Protein 30 mg/dL (NEGATIVE) H 07/29/19 05:00 Urine Glucose (UA) NEGATIVE mg/dL (NEGATIVE) 07/29/19 05:00 Urine Ketones NEGATIVE mg/dL (NEGATIVE) 07/29/19 05:00 Urine Blood SMALL (NEGATIVE) H 07/29/19 05:00 Urine Nitrite NEGATIVE (NEGATIVE) 07/29/19 05:00 Urine Bilirubin NEGATIVE (NEGATIVE) 07/29/19 05:00 Urine Urobilinogen NEGATIVE mg/dL (<2.0) 07/29/19 05:00 Ur Leukocyte Esterase NEGATIVE (NEGATIVE) 07/29/19 05:00 Urine WBC (Auto) 3 /HPF 07/29/19 05:00 Urine RBC (Auto) 4 /HPF 07/29/19 05:00 Squamous Epi Cells Auto 4 /HPF 07/29/19 05:00 Urine Mucus (Auto) RARE /LPF 07/29/19 05:00 Urine Ascorbic Acid NEGATIVE (NEGATIVE) 07/29/19 05:00 Urine Opiates Screen NEGATIVE 07/29/19 05:00 Urine Methadone Screen NEGATIVE 07/29/19 05:00 Ur Barbiturates Screen NEGATIVE 07/29/19 05:00 Ur Phencyclidine Scrn NEGATIVE 07/29/19 05:00 Ur Amphetamines Screen NEGATIVE 07/29/19 05:00 U Benzodiazepines Scrn NEGATIVE 07/29/19 05:00 Urine Cocaine Screen NEGATIVE 07/29/19 05:00 U Marijuana (THC) Screen NEGATIVE 07/29/19 05:00 Serum Alcohol < 10 mg/dL (NONE DETECTED) 07/29/19 04:25 Impressions: Head MRI 07/29/19 00:00 IMPRESSION: MINIMAL MICROVASCULAR ISCHEMIC CHANGE. OTHERWISE NORMAL STUDY. EVIDENCE OF ACUTE STROKE: NO. Chest X-Ray 07/29/19 03:13 IMPRESSION: No acute cardiopulmonary findings. Head CT 07/29/19 03:13 IMPRESSION: No acute intracranial abnormality. Plan Plan of Treatment: Patient was discharged home in stable condition. He was advised to follow-up with primary care provider within 1 week. Follow-up with neurology at the earliest available appointment. We recommend outpatient EEG to complete work-up. Recommend that you get a blood pressure machine and start checking blood pressures daily. If systolic is consistently >160 then start Lisinopril. Take your other medication as prescribed. Do not stop your Plaquenil. Eat a heart healthy diet. Do NOT smoke. Return to emergency department as needed for concerning symptoms. Continue social distancing. Your visit to the hospital does not require that you go under a 14-day strict quarantine. However it did incidentally increase your risk for exposure. Please report any symptoms to primary care provider immediately or call the Hotline to discuss whether or not you should have screening testing done. Time Spent: Greater than 30 Minutes Stroke Is this a Stroke Patient?: No Acute Heart Failure - Is this a Heart Failure Patient?: No
== END 2019-07-30 11:15 | disposition home or self-care (01) ==
LOC: ER 02:11 → EH 08:05 → 4N 10:18
PROVIDERS: ADMIT Internal Medicine; ATTEND Registered Nurse
DX: R56.9 Unspecified convulsions (principal); I10 Essential (primary) hypertension; M32.9 Systemic lupus erythematosus, unspecified; I25.2 Old myocardial infarction; I25.10 Atherosclerotic heart disease of native coronary artery without angina pectoris; Z95.1 Presence of aortocoronary bypass graft; Z79.899 Other long term (current) drug therapy
CPT/HCPCS: 93005; 99285; 36415 ×2; 82962; 80307 ×2; 82550; 83735; 84443; 85025; 80048; 80053; 81001; 83036; 80061; 70551; 71045; 70450; 93010; 94762; J1644; A9270 ×3; J3490